=== PATIENT | male | born 2000 | race Caucasian/White ===

== ENCOUNTER → 2024-05-21 09:00 | Outpatient (BNVA) | payer OTHER, SELFPAY | PROVIDERS: PCP Nurse Practitioner Family; Visit Provider Nurse Practitioner Family | DX: Z13.6 Encounter for screening for cardiovascular disorders (principal); E66.01 Morbid (severe) obesity due to excess calories; G47.10 Hypersomnia, unspecified | CPT/HCPCS: 80053; 80061; 84443; 85025 ==